=== PATIENT | female | born 1930 | race Caucasian/White ===

== ENCOUNTER 2017-03-13 04:21 | Emergency (ER) | payer OTHER, MEDICARE ==
[2017-03-13 04:47] VITALS: TEMP 96.6; BMI 23.3
--- NOTE | 2017-03-13 05:30 | PDOC ---
History of Present Illness - General History Source: Patient Exam Limitations: No Limitations - History of Present Illness Initial Comments: 03/13/17 06:25 The patient is a 86 year old female, with a significant past medical history of Afib, on a pacemaker, frequent cardiac conversions, cataract surgeries, laser trabeculoplasty procedure, large parotid tumor (cancer free), who presents to the emergency department with, nausea, emesis, and abdominal pain. As per patient, she has had 6 episodes of diarrhea and 4 episodes of emesis. The patient reports feeling increasingly tired and an abnormal taste in her mouth. She reports pressure in her chest yesterday. She denies recent fevers, chills, headache or dizziness. She denies recent constipation. She denies recent shortness of breath. Social history: Nonsmoker. Denies EtOH use and recreational drug use. <Kena Rose - Last Filed: 03/13/17 06:25> <Mildred Ramsay - Last Filed: 03/13/17 07:35> - General Chief Complaint: Nausea/Vomiting Stated Complaint: nausea/diarrhea Time Seen by Provider: 03/13/17 04:43 Past History <Kena Rose - Last Filed: 03/13/17 06:25> - Past Medical History Cardiac Disorders: Yes (A FIB, PACEMAKER) Thyroid Disease: Yes (ENLARGED) - Surgical History Cardiac Surgery: Yes (PACEMAKER) - Suicide/Smoking/Psychosocial Hx Smoking History: Never smoked Have you smoked in the past 12 months: No Information on smoking cessation initiated: No Hx Alcohol Use: No Drug/Substance Use Hx: No Substance Use Type: None <Mildred Ramsay - Last Filed: 03/13/17 07:35> - Past Medical History Allergies/Adverse Reactions: Allergies Allergy/AdvReac Type Severity Reaction Status Date / Time epinephrine Allergy Verified 03/13/17 04:47 Sulfa (Sulfonamide Allergy Rash Verified 03/13/17 04:47 Antibiotics) tropicamide Allergy Verified 03/13/17 04:47 "ARI" Allergy Uncoded 03/13/17 04:47 MYCINS Allergy Rash Uncoded 03/13/17 04:47 MYDRAL Allergy Uncoded 03/13/17 04:47 OCU TROPIC Allergy Uncoded 03/13/17 04:47 PHENYLEPHRINE OPTHALMIC Allergy Uncoded 03/13/17 04:47 Home Medications: Ambulatory Orders Estrogens, Conjugated [Premarin] 0.3 mg PO DAILY 03/13/17 Flecainide Acetate 100 mg PO DAILY 03/13/17 Potassium Chloride [Klor-Con] 20 meq PO DAILY 03/13/17 Progesterone, Micronized [Prometrium] 100 mg PO DAILY 03/13/17 Ranitidine HCl [Zantac] 150 mg PO DAILY 03/13/17 Review of Systems - Review of Systems Able to Perform ROS?: Yes Comments:: 03/13/17 06:25 GENERAL/CONSTITUTIONAL: No fever or chills. No weakness. HEAD, EYES, EARS, NOSE AND THROAT: No change in vision. No ear pain or discharge. No sore throat. CARDIOVASCULAR: No shortness of breath. CHEST: +Pressure in chest. RESPIRATORY: No cough, wheezing, or hemoptysis. GASTROINTESTINAL: +Abdominal pain. +Diarrhea. +Nausea. +Emesis. No constipation. GENITOURINARY: No dysuria, frequency, or change in urination. MUSCULOSKELETAL: No joint or muscle swelling or pain. No neck or back pain. SKIN: No rash NEUROLOGIC: No headache, vertigo, loss of consciousness, or change in strength/ sensation. ENDOCRINE: No increased thirst. No abnormal weight change. HEMATOLOGIC/LYMPHATIC: No anemia, easy bleeding, or history of blood clots. ALLERGIC/IMMUNOLOGIC: No hives or skin allergy. All Other Systems: Reviewed and Negative <Kena Rose - Last Filed: 03/13/17 06:25> *Physical Exam - Vital Signs Last Vital Signs Temp Pulse Resp BP Pulse Ox 96.6 F L 64 16 140/78 97 03/13/17 04:43 03/13/17 04:43 03/13/17 04:43 03/13/17 04:43 03/13/17 04:43 - Physical Exam Comments: 03/13/17 06:25 GENERAL: Awake, alert, and fully oriented, in no acute distress HEAD: No signs of trauma EYES: PERRLA, EOMI, sclera anicteric, conjunctiva clear ENT: Auricles normal inspection, hearing grossly normal, nares patent, oropharynx clear without exudates. Moist mucosa NECK: Normal ROM, supple, no lymphadenopathy, JVD, or masses LUNGS: Breath sounds equal, clear to auscultation bilaterally. No wheezes, and no crackles HEART: Regular rate and rhythm, normal S1 and S2, no murmurs, rubs or gallops ABDOMEN: No increased bowel sounds. No flank pain. Soft, nontender, normoactive bowel sounds. No guarding, no rebound. No masses EXTREMITIES: Normal range of motion, no edema. No clubbing or cyanosis. No cords, erythema, or tenderness NEUROLOGICAL: Cranial nerves II through XII grossly intact. Normal speech, normal gait SKIN: Warm, Dry, normal turgor, no rashes or lesions noted. <Kena Rose - Last Filed: 03/13/17 06:25> - Vital Signs Last Vital Signs Temp Pulse Resp BP Pulse Ox 96.6 F L 64 16 140/78 97 03/13/17 04:43 03/13/17 04:43 03/13/17 04:43 03/13/17 04:43 03/13/17 04:43 <Mildred Ramsay - Last Filed: 03/13/17 07:35> ED Treatment Course - LABORATORY CBC & Chemistry Diagram: 03/13/17 05:46 03/13/17 05:46 - ADDITIONAL ORDERS Additional order review: Laboratory Results 03/13/17 05:46 PT with INR 11.10 INR 0.98 03/13/17 05:46 RBC 4.27 MCV 97.7 H MCHC 33.4 RDW 13.5 MPV 8.3 Neutrophils % 95.9 H Lymphocytes % 1.5 L D Monocytes % 2.5 L Eosinophils % 0.0 Basophils % 0.1 - Medications Given in the ED: ED Medications Discontinued Medications Generic Name Dose Route Start Last Admin Trade Name Pacoq PRN Reason Stop Dose Admin Ondansetron HCl 4 mg 03/13/17 05:32 03/13/17 05:51 Zofran Injection IVPB 03/13/17 05:33 4 mg ONCE ONE Administration Sodium Chloride 1,000 ml 03/13/17 05:31 03/13/17 05:51 Normal Saline - IV 03/13/17 05:32 1,000 ml ONCE ONE Administration <Kena Rose - Last Filed: 03/13/17 06:25> - LABORATORY CBC & Chemistry Diagram: 03/13/17 05:46 03/13/17 05:46 <Mildred Ramsay - Last Filed: 03/13/17 07:35> Medical Decision Making - Medical Decision Making 03/13/17 06:30 Pt's labs are normal; she has a neutrophil count of 96% Pt appears weak and dehydrated. SHe has no abd pain at this time. SHe has no flank pain and she is afebrile. <Mildred Ramsay - Last Filed: 03/13/17 07:35> *DC/Admit/Observation/Transfer - Attestations Scribe Attestion: 03/13/17 06:25 Documentation prepared by Kena Rose, acting as medical health researcher for Mildred Ramsay MD. <Kena Rose - Last Filed: 03/13/17 06:25> - Discharge Dispostion Admit: No <Mildred Ramsay - Last Filed: 03/13/17 07:35> Diagnosis at time of Disposition: Vomiting, Gastroenteritis - Discharge Dispostion Disposition: HOME Condition at time of disposition: Stable - Referrals Referrals: ON STAFF,NOT [Primary Care Provider] - - Patient Instructions Printed Discharge Instructions: DI for Vomiting -- Adult, DI for Nausea -- Adult - Post Discharge Activity
[2017-03-13] MEDS ORDERED: SODIUM CHLORIDE 0.9% 500 ML INFUS.BAG IV ONE (05:31)
[2017-03-13] MEDS ORDERED: ONDANSETRON 4 MG/2 ML VIAL IVPB ONE (05:32)
[2017-03-13] MEDS ORDERED: ONDANSETRON 4 MG/2 ML VIAL ONE (05:36)
[2017-03-13 05:57] LABS: BASO % 0.1 % (0-2.0); HEMATOCRIT 41.7 % (32.4-45.2); HEMOGLOBIN 13.9 GM/dL (10.7-15.3); LYMPH % 1.5 % (8-40); MCH 32.7 pg (25.7-33.7); MCHC 33.4 g/dl (32.0-36.0); MEAN CELL VOLUME 97.7 fl (80-96); MEAN PLT VOLUME 8.3 fl (7.5-11.1); MONO % 2.5 % (3.8-10.2); NEUT % 95.9 % (42.8-82.8); PLATELET COUNT 110 K/MM3 (134-434); RBC 4.27 M/mm3 (3.60-5.2); RDW 13.5 % (11.6-15.6); WHITE BLOOD COUNT 8.6 K/mm3 (4.0-10.0)
[2017-03-13 06:22] LABS: INR 0.98 (0.82-1.09); PROTHROMBIN TIME (PATIENT) 11.1 SEC (9.98-11.88)
[2017-03-13 06:24] LABS: ALBUMIN 3.4 g/dl (3.4-5.0); ANION GAP 8 (8-16); BILIRUBIN,TOTAL 0.8 mg/dL (0.2-1.0); BLOOD UREA NITROGEN 17 mg/dL (7-18); CALCIUM 7.9 mg/dL (8.5-10.1); CHLORIDE 102 mmol/L (98-107); CO2 27 mmol/L (21-32); CREATININE 0.8 mg/dL (0.55-1.02); GLUCOSE,RANDOM 103 mg/dL (74-106); SGOT/AST 21 U/L (15-37); SGPT/ALT 22 U/L (12-78); SODIUM 137 mmol/L (136-145); TOT PROT 6.8 g/dl (6.4-8.2)
[2017-03-13 06:26] LABS: ALK PHOS 67 U/L (45-117)
[2017-03-13] MEDS ORDERED: FAMOTIDINE 20 MG/50 ML IVPB 20 MG/50 ML MG IVPB ONE ×2 (06:29→07:19)
[2017-03-13 07:40] VITALS: BP 129/69; PULSE 67
--- NOTE | 2017-03-13 12:07 | EKG ---
Test Reason : Blood Pressure : / mmHG Vent. Rate : 068 BPM Atrial Rate : 068 BPM P-R Int : 200 ms QRS Dur : 134 ms QT Int : 428 ms P-R-T Axes : 068 -55 089 degrees QTc Int : 455 ms NORMAL SINUS RHYTHM LEFT AXIS DEVIATION NON-SPECIFIC INTRA-VENTRICULAR CONDUCTION BLOCK CANNOT RULE OUT SEPTAL INFARCT , AGE UNDETERMINED ABNORMAL ECG Confirmed by MD LEANNE, KRISHNA ([id number]) on 03/13/2017 12:06:36 PM Referred By: Confirmed By:KRISHNA PERDOMO MD
== END 2017-03-13 07:40 | disposition home or self-care (01) ==
LOC: SUPCPDRO 04:21 → JER 04:21
DX: K52.9 Noninfective gastroenteritis and colitis, unspecified (principal)
CPT/HCPCS: 36415; 74019-TC; 80053; 82550; 84484; 85025; 85610; 87804; 93005; 93010; 99283-25